=== PATIENT | male | born 1980 | race Caucasian/White ===

== ENCOUNTER 2022-07-29 08:43 | Emergency (ER) | payer OTHER, SELFPAY ==
[2022-07-29 08:59] VITALS: BP 159/100; PULSE 82; RESP 16; TEMP 36.1; O2SAT 100
--- NOTE | 2022-07-29 09:17 | ED.URI ---
HPI - URI/Sore Throat General Chief Complaint: Upper Respiratory Infection Stated Complaint: scratchy throat headache and run nose Time Seen by Provider: 07/29/22 09:17 Source: patient and RN notes reviewed Mode of arrival: ambulatory Limitations: no limitations History of Present Illness HPI Narrative: 41 y/o male presented for c/o sore throat, fatigue, over slept for work today. Endorses headache last night. Starting to feel better now. Reports dtr with cough and known covid exposure 07/17/22. Not taking anything for symptoms. Denies sob, wheezing, vomiting, fever or chills. MD elicited complaint: cough Related Data Home Medications Medication Instructions Recorded Confirmed No Home Medications 07/29/22 07/29/22 Allergies Allergy/AdvReac Type Severity Reaction Status Date / Time No Known Allergies Allergy Verified 07/29/22 09:14 Review of Systems Review of Systems: ROS negative except as in HPI Exam Narrative: GENERAL: well-appearing EYES: conjunctivae clear ENT: Mucous membranes moist. TMs pearly downs with dull light reflex bilaterally; no tragal tenderness. Oropharynx erythematous without lesions or exudate, no drooling, no hoarseness, no trismus, uvula midline. CHEST: Clear to auscultation, breath sounds equal. HEART: Regular rate and rhythm. SKIN: Warm, dry, no rash. NEURO: Alert and oriented x3. PSYCH: Normal mood and affect Course Course Emergency Course: Patient is aware of diagnosis, understands and agrees to treatment plan. Anticipatory guidance given. Patient agrees to follow-up as directed and is aware of reasons to seek care at the emergency department. Portions of this record may have been created with voice recognition software Level of Care: Express Care Visit Vital Signs Vital signs: Vital Signs Temperature 97 F L 07/29/22 08:59 Pulse Rate 82 07/29/22 08:59 Respiratory Rate 16 07/29/22 08:59 Blood Pressure 159/100 H 07/29/22 08:59 Pulse Oximetry 100 07/29/22 08:59 Oxygen Delivery Room Air 07/29/22 08:59 Temperature 97 F L 07/29/22 08:59 Pulse Rate 82 07/29/22 08:59 Respiratory Rate 16 07/29/22 08:59 Blood Pressure 159/100 H 07/29/22 08:59 Pulse Oximetry 100 07/29/22 08:59 Oxygen Delivery Room Air 07/29/22 08:59 reviewed MDM - URI/Sore Throat MDM Narrative Medical decision making narrative: covid negative, advised supportive measures and signs/symptoms to go to the ER. Pt is appropriate for outpt treatment and f/u. Differential Diagnosis Differential diagnosis: Likely upper respiratory infection, sinusitis and viral infection Lab Data Labs: Lab Results 07/29/22 Range/Units Unknown POC SARS CoV-2 Ag Negative (Negative) Discharge Plan Discharge Clinical Impression: Upper respiratory infection Patient Disposition: Home, Self-Care Condition: Stable Instructions: COVID-19 (Coronavirus Disease 2019) (ED) Additional Instructions: Your Rapid COVID test was negative today. If you are symptomatic with reason to believe you have COVID-19, there is a high possibility your rapid test may not have detected the virus. You should follow appropriate guidelines regarding quarantine, hand washing, mask wearing, and social distancing Recommend retesting in 1 to 2 days Avoid crowds/work if you have a fever Rest, stay hydrated. Tylenol, Flonase/nasal spray, Zyrtec, cough syrup and cold/flu medications for symptoms as needed Follow up with your primary care provider as needed in 1 week Go to the ER for worsening symptoms or concerns Prescriptions: No Action No Home Medications Follow-up/Referrals: PHYSICIAN,RADIO[employer] PRODUCTION OPERATOR [Primary Care Provider] - Stand Alone Forms: Work/School Release IP Time of Disposition: 09:43
== END 2022-07-29 09:46 | disposition home or self-care (01) ==
PROVIDERS: Emergency Provider Nurse Practitioner Family
DX: J06.9 Acute upper respiratory infection, unspecified (principal); Z20.822 Contact with and (suspected) exposure to COVID-19
CPT/HCPCS: 87426; 99213; C9803; G0463